=== PATIENT | female | born 1975 | race Caucasian/White ===

== ENCOUNTER → 2019-05-04 | Outpatient (CLI) | payer BC, OTHER ==
[~2019-05-04] MED LIST: CLARITIN10 M3 PO; IRON18 M1 PO; NUVARING VAGIN1 EACH INTRAUTERI
[2019-05-04 08:00] VITALS: BP 119/66
[2019-05-04 10:04] VITALS: BP 114/70
--- NOTE | 2019-05-04 13:22 | NUR ---
IN FOR 1ST OF 2 INJECTAFER INFUSIONS FOR IRON DEFICIENCY ANEMIA. ADMISSION HISTORY AND ASSESSMENT COMPLETED. DISCUSSED POSSIBLE SIDE EFFECTS WITH INJECTAFER AND COMMUNICATED UNDERSTANDING. TOLERATED INFUSION WITHOUT INCIDENT. OBSERVED FOR 30 MINUTES WITH POST VITAL SIGNS STABLE. REMOVED IV. TO RETURN NEXT FRIDAY THE FOR 2ND INFUSION. DISMISSED IN GOOD CONDITION.
== END ==
LOC: OPONC 07:53
DX: D50.9 Iron deficiency anemia, unspecified (principal)
CPT/HCPCS: 95000

== ENCOUNTER → 2019-05-12 | Outpatient (CLI) | payer BC, OTHER ==
[2019-05-12 08:10] VITALS: BP 106/68
[2019-05-12 09:35] VITALS: BP 122/80
--- NOTE | 2019-05-12 10:12 | NUR ---
IN FOR 2ND INJECTAFER INFUSION FOR IRON DEFICIENCY ANEMIA. PATIENT STATED HAD NO REACTION FROM 1ST DOSE LAST WEEK. STATED I AM FEELING MORE LIKE MYSELF TODAY. TOLERATED INFUSION WITHOUT INCIDENT. OBSERVED FOR 30 MINUTES THEN DISMISSED IN STABLE CONDITION. POST VITAL SIGNS GOOD.
== END ==
LOC: OPONC 07:54
DX: D50.9 Iron deficiency anemia, unspecified (principal); T45.4X5A Adverse effect of iron and its compounds, initial encounter; Y92.89 Other specified places as the place of occurrence of the external cause
CPT/HCPCS: 95000

== ENCOUNTER → 2020-07-05 | Outpatient (CLI) | payer BC, OTHER ==
[~2020-07-05] MED LIST changes: +[UNRECOGNIZED DRUG - OTHER] BUCCAL; +[UNRECOGNIZED DRUG - OTHER] BUCCAL
[2020-07-05 09:20] VITALS: BP 123/74
[2020-07-05 10:09] VITALS: BP 118/82
[2020-07-05 10:33] VITALS: BP 117/79
--- NOTE | 2020-07-05 10:37 | NUR ---
HERE FOR 1ST OF 2 INJECTAFER INFUSIONS. HAD SAME TREATMENT IN 2019 AND RECALLS HOW MUCH BETTER SHE FELT AFTER COMPLETION. REVIEWED WHAT TO EXPECT, SCHEDULE OF WHEN TO RETURN AND ANSWERED ANY QUESTIONS. TOLERATED INFUSION WITHOUT INCIDENT OVER 30 MIN. WATCHED FOR 30 MIN POST. VSS. DISMISSED IN STABLE CONDITION. SCHEDULED TO RETURN NEXT WEEK ON FRIDAY.
== END ==
LOC: OPONC 08:57
PROVIDERS: ATTEND Internal Medicine
DX: D50.8 Other iron deficiency anemias (principal); T45.4X5A Adverse effect of iron and its compounds, initial encounter
CPT/HCPCS: 95000

== ENCOUNTER → 2020-07-12 | Outpatient (CLI) | payer BC, OTHER ==
[2020-07-12 10:17] VITALS: BP 132/74
[2020-07-12 11:20] VITALS: BP 130/79
[2020-07-12 11:50] VITALS: BP 115/73
--- NOTE | 2020-07-12 11:55 | NUR ---
HERE FOR HER 2ND AND FINAL INJECTAFER INFUSION. REPORTS TOLERATING 1ST WITHOUT ANY INCIDENT EXCEPT FOR A MILD HEADACHE. TOLERATED TODAY'S WITH NO S/S REACTION, WATCHED FOR 30MIN POST INFUSION. DISMISSED IN STABLE CONDTION.
== END ==
LOC: OPONC 10:18
PROVIDERS: ATTEND Internal Medicine
DX: D50.8 Other iron deficiency anemias (principal); T45.4X5A Adverse effect of iron and its compounds, initial encounter; Y92.89 Other specified places as the place of occurrence of the external cause
CPT/HCPCS: 95000